=== PATIENT | female | born 1960 | race Caucasian/White ===

== ENCOUNTER 2025-03-16 03:52 | Outpatient (RCR) | payer MEDICAID, SELFPAY ==
[2025-03-14] MEDS: Normal Saline Flush 10 ML SYR IVP (08:20)
[2025-03-14 08:40] LABS: Abs Immature Grans 0.12 10^3/uL (0.0-0.06); HCT 29.0 % (36.0-46.0); HGB 8.9 g/dL (11.2-15.7); MCH 27.7 pg (27.0-33.0); MCHC 30.7 % (32.0-36.0); MCV 90 fL (80-95); RBC 3.21 10^6/uL (3.93-5.22); RDW 21.6 % (11.7-14.6); RDW-SD 67.3 fL
[2025-03-14 09:55] LABS: Immature Grans % 0.0 %
[2025-03-14 09:56] LABS: Anisocytosis 3+; Hypochromasia 1+; Macrocytosis 1+; Microcytosis 2+; Schistocytes 1+; Tear Drop Cells 2+
[2025-03-14 09:59] LABS: Platelet Count 69 10^3/uL (130-400)
[2025-03-14 10:08] LABS: WBC 1.67 10^3/uL (4.4-10.8)
[2025-03-16 08:23] LABS: Abs Immature Grans 0.08 10^3/uL (0.0-0.06); HCT 30.3 % (36.0-46.0); HGB 9.3 g/dL (11.2-15.7); MCH 27.9 pg (27.0-33.0); MCHC 30.7 % (32.0-36.0); MCV 91 fL (80-95); RBC 3.33 10^6/uL (3.93-5.22); RDW 22.3 % (11.7-14.6); RDW-SD 68.5 fL
[2025-03-16 08:31] LABS: Platelet Count 116 10^3/uL (130-400)
[2025-03-16] MEDS: Normal Saline Flush 10 ML SYR IVP (08:54)
[2025-03-16 09:06] LABS: Anisocytosis 2+; Hypochromasia 1+; Microcytosis 2+; Schistocytes 1+; Tear Drop Cells 2+
[2025-03-16 09:21] LABS: WBC 1.32 10^3/uL (4.4-10.8)
[2025-03-16 09:25] LABS: Immature Grans % 0.0 %
== END 2025-03-19 23:59 | disposition home or self-care (01) ==
LOC: INF 03:52
PROVIDERS: PCP Family Medicine; Visit Provider Internal Medicine
DX: C92.00 Acute myeloblastic leukemia, not having achieved remission (principal)
CPT/HCPCS: 36415; 86850; 86900; 86901; 85025

== ENCOUNTER 2025-04-18 14:00 | Outpatient (RCR) | payer MEDICAID, SELFPAY ==
[2025-03-21 08:49] LABS: Abs Immature Grans 0.00 10^3/uL (0.0-0.06); HCT 27.7 % (36.0-46.0); HGB 8.5 g/dL (11.2-15.7); Immature Grans % 0.0 %; MCH 28.0 pg (27.0-33.0); MCHC 30.7 % (32.0-36.0); MCV 91 fL (80-95); MPV 10.5 fL (8.0-11.0); Platelet Count 386 10^3/uL (130-400); RBC 3.04 10^6/uL (3.93-5.22); RDW 23.6 % (11.7-14.6); RDW-SD 73.5 fL
[2025-03-21 09:58] LABS: Anisocytosis 2+; Hypochromasia 1+; Microcytosis 1+; Tear Drop Cells 2+
[2025-03-21 10:06] LABS: WBC 1.02 10^3/uL (4.4-10.8)
[2025-03-27 08:25] LABS: Abs Immature Grans 0.00 10^3/uL (0.0-0.06); HCT 29.0 % (36.0-46.0); HGB 8.9 g/dL (11.2-15.7); Immature Grans % 0.0 %; MCH 28.2 pg (27.0-33.0); MCHC 30.7 % (32.0-36.0); MCV 92 fL (80-95); MPV 10.3 fL (8.0-11.0); Platelet Count 709 10^3/uL (130-400); RBC 3.16 10^6/uL (3.93-5.22); RDW 25.5 % (11.7-14.6); RDW-SD 82.5 fL
[2025-03-27 09:17] LABS: Anisocytosis 3+; Hypochromasia 2+; Microcytosis 2+; Schistocytes 1+
[2025-03-27 09:26] LABS: WBC 0.87 10^3/uL (4.4-10.8)
[2025-03-30 08:18] LABS: Abs Immature Grans 0.01 10^3/uL (0.0-0.06); HCT 29.8 % (36.0-46.0); HGB 9.2 g/dL (11.2-15.7); MCH 28.4 pg (27.0-33.0); MCHC 30.9 % (32.0-36.0); MCV 92 fL (80-95); MPV 9.8 fL (8.0-11.0); RBC 3.24 10^6/uL (3.93-5.22); RDW 26.5 % (11.7-14.6); RDW-SD 89.0 fL
[2025-03-30 09:13] LABS: Immature Grans % 0.0 %
[2025-03-30 09:14] LABS: Anisocytosis 3+; Hypochromasia 1+
[2025-03-30 09:15] LABS: Microcytosis 2+; Schistocytes 1+
[2025-03-30 09:16] LABS: Poikilocytes 2+; Tear Drop Cells 2+
[2025-03-30 09:17] LABS: Platelet Count 674 10^3/uL (130-400)
[2025-03-30 09:37] LABS: WBC 0.98 10^3/uL (4.4-10.8)
[2025-04-03 08:37] LABS: Abs Immature Grans 0.00 10^3/uL (0.0-0.06); HCT 28.4 % (36.0-46.0); HGB 8.8 g/dL (11.2-15.7); Immature Grans % 0.0 %; MCH 28.8 pg (27.0-33.0); MCHC 31.0 % (32.0-36.0); MCV 93 fL (80-95); MPV 9.7 fL (8.0-11.0); Platelet Count 646 10^3/uL (130-400); RBC 3.06 10^6/uL (3.93-5.22); RDW 27.7 % (11.7-14.6); RDW-SD 92.8 fL
[2025-04-03 10:31] LABS: Anisocytosis 3+; Hypochromasia 2+; Macrocytosis 1+; Microcytosis 2+; Ovalocytes 2+
[2025-04-03 10:32] LABS: Poikilocytes 1+; Polychromasia Present; Schistocytes 1+; Tear Drop Cells 2+
[2025-04-03 10:34] LABS: WBC 1.22 10^3/uL (4.4-10.8)
[2025-04-06 08:32] LABS: Abs Immature Grans 0.01 10^3/uL (0.0-0.06); HCT 28.4 % (36.0-46.0); HGB 8.9 g/dL (11.2-15.7); MCH 29.2 pg (27.0-33.0); MCHC 31.3 % (32.0-36.0); MCV 93 fL (80-95); MPV 10.2 fL (8.0-11.0); Platelet Count 579 10^3/uL (130-400); RBC 3.05 10^6/uL (3.93-5.22); RDW 28.0 % (11.7-14.6); RDW-SD 94.0 fL
[2025-04-06 09:32] LABS: Immature Grans % 0.0 %
[2025-04-06 09:37] LABS: WBC 1.41 10^3/uL (4.4-10.8)
[2025-04-06 09:38] LABS: Anisocytosis 2+; Microcytosis 1+; Ovalocytes 2+; Polychromasia Present; Schistocytes 1+; Tear Drop Cells 2+
[2025-04-11 08:26] LABS: Abs Immature Grans 0.03 10^3/uL (0.0-0.06); HCT 28.9 % (36.0-46.0); HGB 9.1 g/dL (11.2-15.7); Immature Grans % 1.1 %; MCH 29.2 pg (27.0-33.0); MCHC 31.5 % (32.0-36.0); MCV 93 fL (80-95); MPV 9.9 fL (8.0-11.0); Platelet Count 527 10^3/uL (130-400); RBC 3.12 10^6/uL (3.93-5.22); RDW 28.6 % (11.7-14.6); RDW-SD 95.7 fL; WBC 2.64 10^3/uL (4.4-10.8)
[2025-04-11 08:55] LABS: Anisocytosis 3+; Hypochromasia 1+; Microcytosis 1+
[2025-04-11 08:56] LABS: Polychromasia Present; Schistocytes 1+
[2025-04-13 08:22] LABS: HCT 29.7 % (36.0-46.0); HGB 9.2 g/dL (11.2-15.7); MCH 28.8 pg (27.0-33.0); MCHC 31.0 % (32.0-36.0); MCV 93 fL (80-95); MPV 10.5 fL (8.0-11.0); Platelet Count 553 10^3/uL (130-400); RBC 3.19 10^6/uL (3.93-5.22); RDW 29.1 % (11.7-14.6); RDW-SD 98.6 fL; WBC 2.73 10^3/uL (4.4-10.8)
[2025-04-13 08:56] LABS: Abs Immature Grans 0.00 10^3/uL (0.0-0.06); Anisocytosis 2+; Immature Grans % 0.0 %
[2025-04-17 12:34] LABS: HCT 30.9 % (36.0-46.0); HGB 9.6 g/dL (11.2-15.7); MCH 29.4 pg (27.0-33.0); MCHC 31.1 % (32.0-36.0); MCV 95 fL (80-95); MPV 10.2 fL (8.0-11.0); Platelet Count 640 10^3/uL (130-400); RBC 3.27 10^6/uL (3.93-5.22); RDW 29.6 % (11.7-14.6); RDW-SD 102.7 fL; WBC 2.98 10^3/uL (4.4-10.8)
[2025-04-17 13:04] LABS: Abs Immature Grans 0.00 10^3/uL (0.0-0.06); Anisocytosis 2+; Immature Grans % 0.0 %
[2025-04-17 14:33] LABS: ALT 20 U/L (14-59); AST 15 U/L (15-37); Albumin 3.6 g/dL (3.4-5.0); Alkaline Phosphatase 117 U/L (46-116); Anion Gap 10.7 mmol/L (3-11); BUN 13 mg/dL (7-18); Bilirubin, Total 0.4 mg/dL (0.2-1.0); CO2 25.3 mmol/L (21.0-32.0); Calcium 9.0 mg/dL (8.5-10.1); Chloride 103 mmol/L (98-107); Glucose 92 mg/dL (74-106); Potassium 3.9 mmol/L (3.5-5.1); Sodium 139 mmol/L (136-145); Total Protein 7.1 g/dL (6.4-8.2)
[2025-04-18 14:14] LABS: Abs Immature Grans 0.05 10^3/uL (0.0-0.06); HCT 29.5 % (36.0-46.0); HGB 9.1 g/dL (11.2-15.7); MCH 28.9 pg (27.0-33.0); MCHC 30.8 % (32.0-36.0); MCV 94 fL (80-95); MPV 12.1 fL (8.0-11.0); Platelet Count 737 10^3/uL (130-400); RBC 3.15 10^6/uL (3.93-5.22); RDW 29.6 % (11.7-14.6); RDW-SD 103.9 fL; WBC 2.37 10^3/uL (4.4-10.8)
[2025-04-18 14:52] LABS: ALT 20 U/L (14-59); AST 14 U/L (15-37); Albumin 3.6 g/dL (3.4-5.0); Alkaline Phosphatase 133 U/L (46-116); Anion Gap 8.9 mmol/L (3-11); BUN 16 mg/dL (7-18); Bilirubin, Total 0.3 mg/dL (0.2-1.0); CO2 28.1 mmol/L (21.0-32.0); Calcium 8.9 mg/dL (8.5-10.1); Chloride 106 mmol/L (98-107); Glucose 117 mg/dL (74-106); Potassium 4.2 mmol/L (3.5-5.1); Sodium 143 mmol/L (136-145); Total Protein 7.1 g/dL (6.4-8.2)
[2025-04-18 15:02] LABS: Immature Grans % 0.0 %
[2025-04-18 15:05] LABS: Anisocytosis 2+; Hypochromasia 1+; Macrocytosis 1+; Microcytosis 2+
[2025-04-18 15:06] LABS: Polychromasia Present; Schistocytes 2+
== END 2025-04-18 23:59 | disposition home or self-care (01) ==
LOC: INF 14:00
PROVIDERS: Nurse Practitioner; PCP Family Medicine; Visit Provider Internal Medicine
DX: C92.00 Acute myeloblastic leukemia, not having achieved remission (principal)
CPT/HCPCS: 36415; 80053; 86850; 86900; 86901; 85025

== ENCOUNTER 2025-05-18 00:01 | Outpatient (RCR) | payer MEDICAID, SELFPAY ==
[2025-04-20 08:09] LABS: Abs Immature Grans 0.06 10^3/uL (0.0-0.06); HCT 32.0 % (36.0-46.0); HGB 9.8 g/dL (11.2-15.7); Immature Grans % 1.9 %; MCH 29.0 pg (27.0-33.0); MCHC 30.6 % (32.0-36.0); MCV 95 fL (80-95); MPV 11.3 fL (8.0-11.0); RBC 3.38 10^6/uL (3.93-5.22); RDW 28.8 % (11.7-14.6); RDW-SD 99.3 fL; WBC 3.20 10^3/uL (4.4-10.8)
[2025-04-20 08:22] LABS: Anisocytosis 2+; Platelet Count 672 10^3/uL (130-400); Poikilocytes 2+
[2025-04-24 08:06] LABS: Abs Immature Grans 0.08 10^3/uL (0.0-0.06); HCT 32.5 % (36.0-46.0); HGB 9.9 g/dL (11.2-15.7); Immature Grans % 2.0 %; MCH 29.0 pg (27.0-33.0); MCHC 30.5 % (32.0-36.0); MCV 95 fL (80-95); MPV 9.9 fL (8.0-11.0); Platelet Count 582 10^3/uL (130-400); RBC 3.41 10^6/uL (3.93-5.22); RDW 27.8 % (11.7-14.6); RDW-SD 98.5 fL; WBC 4.09 10^3/uL (4.4-10.8)
[2025-04-24 08:28] LABS: Anisocytosis 2+; Hypochromasia 1+; Microcytosis 1+; Polychromasia Present; Schistocytes 1+
[2025-04-24 08:31] LABS: ALT 18 U/L (14-59); AST 14 U/L (15-37); Albumin 3.8 g/dL (3.4-5.0); Alkaline Phosphatase 114 U/L (46-116); Anion Gap 9.1 mmol/L (3-11); BUN 15 mg/dL (7-18); Bilirubin, Total 0.5 mg/dL (0.2-1.0); CO2 27.9 mmol/L (21.0-32.0); Calcium 9.4 mg/dL (8.5-10.1); Chloride 104 mmol/L (98-107); Glucose 105 mg/dL (74-106); Magnesium 2.1 mg/dL (1.8-2.4); Potassium 4.4 mmol/L (3.5-5.1); Sodium 141 mmol/L (136-145); Total Protein 7.3 g/dL (6.4-8.2)
[2025-04-27 08:45] LABS: Abs Immature Grans 0.05 10^3/uL (0.0-0.06); HCT 34.2 % (36.0-46.0); HGB 10.7 g/dL (11.2-15.7); MCH 30.1 pg (27.0-33.0); MCHC 31.3 % (32.0-36.0); MCV 96 fL (80-95); MPV 10.8 fL (8.0-11.0); Platelet Count 508 10^3/uL (130-400); RBC 3.55 10^6/uL (3.93-5.22); RDW 27.2 % (11.7-14.6); RDW-SD 95.7 fL; WBC 5.07 10^3/uL (4.4-10.8)
[2025-04-27 09:06] LABS: ALT 20 U/L (14-59); AST 16 U/L (15-37); Albumin 4.1 g/dL (3.4-5.0); Alkaline Phosphatase 115 U/L (46-116); Anion Gap 9.3 mmol/L (3-11); BUN 21 mg/dL (7-18); Bilirubin, Total 0.8 mg/dL (0.2-1.0); CO2 27.7 mmol/L (21.0-32.0); Calcium 9.5 mg/dL (8.5-10.1); Chloride 103 mmol/L (98-107); Glucose 95 mg/dL (74-106); Magnesium 2.3 mg/dL (1.8-2.4); Potassium 4.3 mmol/L (3.5-5.1); Sodium 140 mmol/L (136-145); Total Protein 7.7 g/dL (6.4-8.2)
[2025-04-27 09:39] LABS: Immature Grans % 0.0 %
[2025-04-27 09:40] LABS: Anisocytosis 2+; Hypochromasia 1+; Macrocytosis 1+; Microcytosis 2+; Ovalocytes 2+; Polychromasia Present; Schistocytes 1+; Tear Drop Cells 2+
[2025-05-02 08:51] LABS: Abs Immature Grans 0.02 10^3/uL (0.0-0.06); HCT 30.3 % (36.0-46.0); HGB 9.8 g/dL (11.2-15.7); Immature Grans % 0.6 %; MCH 31.3 pg (27.0-33.0); MCHC 32.3 % (32.0-36.0); MCV 97 fL (80-95); Platelet Count 237 10^3/uL (130-400); RBC 3.13 10^6/uL (3.93-5.22); RDW 26.1 % (11.7-14.6); RDW-SD 89.9 fL; WBC 3.25 10^3/uL (4.4-10.8)
[2025-05-02 09:08] LABS: ALT 21 U/L (14-59); AST 14 U/L (15-37); Albumin 3.7 g/dL (3.4-5.0); Alkaline Phosphatase 116 U/L (46-116); Anion Gap 9.2 mmol/L (3-11); BUN 16 mg/dL (7-18); Bilirubin, Total 0.6 mg/dL (0.2-1.0); CO2 28.8 mmol/L (21.0-32.0); Calcium 9.0 mg/dL (8.5-10.1); Chloride 105 mmol/L (98-107); Glucose 92 mg/dL (74-106); Magnesium 2.1 mg/dL (1.8-2.4); Potassium 4.0 mmol/L (3.5-5.1); Sodium 143 mmol/L (136-145); Total Protein 6.9 g/dL (6.4-8.2)
[2025-05-02 09:34] LABS: Anisocytosis 3+; Hypochromasia 1+; Microcytosis 2+; Polychromasia Present; Schistocytes 1+
[2025-05-02 09:35] LABS: Tear Drop Cells 2+
[2025-05-04 08:11] LABS: Abs Immature Grans 0.02 10^3/uL (0.0-0.06); HCT 31.0 % (36.0-46.0); HGB 9.8 g/dL (11.2-15.7); MCH 30.6 pg (27.0-33.0); MCHC 31.6 % (32.0-36.0); MCV 97 fL (80-95); Platelet Count 222 10^3/uL (130-400); RBC 3.20 10^6/uL (3.93-5.22); RDW 25.6 % (11.7-14.6); RDW-SD 87.0 fL; WBC 3.59 10^3/uL (4.4-10.8)
[2025-05-04 08:24] LABS: ALT 21 U/L (14-59); AST 21 U/L (15-37); Albumin 3.8 g/dL (3.4-5.0); Alkaline Phosphatase 114 U/L (46-116); Anion Gap 9.7 mmol/L (3-11); BUN 15 mg/dL (7-18); Bilirubin, Total 0.6 mg/dL (0.2-1.0); CO2 28.3 mmol/L (21.0-32.0); Calcium 9.2 mg/dL (8.5-10.1); Chloride 104 mmol/L (98-107); Glucose 83 mg/dL (74-106); Magnesium 2.1 mg/dL (1.8-2.4); Potassium 4.4 mmol/L (3.5-5.1); Sodium 142 mmol/L (136-145); Total Protein 7.1 g/dL (6.4-8.2)
[2025-05-04 09:00] LABS: Anisocytosis 3+; Hypochromasia 1+; Immature Grans % 0.0 %; Macrocytosis 1+; Microcytosis 2+; Ovalocytes 2+; Polychromasia Present; Schistocytes 1+
[2025-05-09 08:39] LABS: Abs Immature Grans 0.01 10^3/uL (0.0-0.06); HCT 32.5 % (36.0-46.0); HGB 10.3 g/dL (11.2-15.7); Immature Grans % 0.3 %; MCH 31.9 pg (27.0-33.0); MCHC 31.7 % (32.0-36.0); MCV 101 fL (80-95); Platelet Count 281 10^3/uL (130-400); RBC 3.23 10^6/uL (3.93-5.22); RDW 25.8 % (11.7-14.6); RDW-SD 89.5 fL; WBC 2.91 10^3/uL (4.4-10.8)
[2025-05-09 08:56] LABS: ALT 23 U/L (14-59); AST 16 U/L (15-37); Albumin 3.9 g/dL (3.4-5.0); Alkaline Phosphatase 110 U/L (46-116); Anion Gap 6.3 mmol/L (3-11); BUN 12 mg/dL (7-18); Bilirubin, Total 0.9 mg/dL (0.2-1.0); CO2 28.7 mmol/L (21.0-32.0); Calcium 9.0 mg/dL (8.5-10.1); Chloride 105 mmol/L (98-107); Glucose 93 mg/dL (74-106); Magnesium 2.2 mg/dL (1.8-2.4); Potassium 3.9 mmol/L (3.5-5.1); Sodium 140 mmol/L (136-145); Total Protein 7.2 g/dL (6.4-8.2)
[2025-05-09 09:15] LABS: Anisocytosis 2+; Poikilocytes 2+
[2025-05-11 08:30] LABS: Abs Immature Grans 0.01 10^3/uL (0.0-0.06); HCT 34.7 % (36.0-46.0); HGB 10.8 g/dL (11.2-15.7); Immature Grans % 0.4 %; MCH 32.0 pg (27.0-33.0); MCHC 31.1 % (32.0-36.0); MCV 103 fL (80-95); MPV 10.7 fL (8.0-11.0); Platelet Count 343 10^3/uL (130-400); RBC 3.37 10^6/uL (3.93-5.22); RDW 25.2 % (11.7-14.6); RDW-SD 91.2 fL; WBC 2.66 10^3/uL (4.4-10.8)
[2025-05-11 08:46] LABS: ALT 24 U/L (14-59); AST 14 U/L (15-37); Albumin 3.9 g/dL (3.4-5.0); Alkaline Phosphatase 104 U/L (46-116); Anion Gap 8.5 mmol/L (3-11); BUN 15 mg/dL (7-18); Bilirubin, Total 0.9 mg/dL (0.2-1.0); CO2 28.5 mmol/L (21.0-32.0); Calcium 9.3 mg/dL (8.5-10.1); Chloride 104 mmol/L (98-107); Glucose 94 mg/dL (74-106); Magnesium 2.2 mg/dL (1.8-2.4); Potassium 4.5 mmol/L (3.5-5.1); Sodium 141 mmol/L (136-145); Total Protein 7.3 g/dL (6.4-8.2)
[2025-05-11 09:10] LABS: Anisocytosis 2+
[2025-05-16 08:38] LABS: Abs Immature Grans 0.00 10^3/uL (0.0-0.06); HCT 39.7 % (36.0-46.0); HGB 12.5 g/dL (11.2-15.7); Immature Grans % 0.0 %; MCH 32.8 pg (27.0-33.0); MCHC 31.5 % (32.0-36.0); MCV 104 fL (80-95); MPV 11.2 fL (8.0-11.0); RBC 3.81 10^6/uL (3.93-5.22); RDW 22.5 % (11.7-14.6); RDW-SD 80.3 fL; WBC 2.63 10^3/uL (4.4-10.8)
[2025-05-16 08:51] LABS: ALT 23 U/L (14-59); AST 12 U/L (15-37); Albumin 4.0 g/dL (3.4-5.0); Alkaline Phosphatase 113 U/L (46-116); Anion Gap 8.9 mmol/L (3-11); BUN 18 mg/dL (7-18); Bilirubin, Total 0.6 mg/dL (0.2-1.0); CO2 28.1 mmol/L (21.0-32.0); Calcium 9.3 mg/dL (8.5-10.1); Chloride 103 mmol/L (98-107); Glucose 93 mg/dL (74-106); Magnesium 2.1 mg/dL (1.8-2.4); Potassium 4.1 mmol/L (3.5-5.1); Sodium 140 mmol/L (136-145); Total Protein 7.5 g/dL (6.4-8.2)
[2025-05-16 09:18] LABS: Anisocytosis 3+; Hypochromasia 1+; Macrocytosis 2+; Microcytosis 1+
[2025-05-16 09:19] LABS: Polychromasia Present; Schistocytes 1+
[2025-05-16 09:22] LABS: Platelet Count 807 10^3/uL (130-400)
[2025-05-18 08:10] LABS: Abs Immature Grans 0.01 10^3/uL (0.0-0.06); HCT 38.9 % (36.0-46.0); HGB 12.2 g/dL (11.2-15.7); Immature Grans % 0.4 %; MCH 32.6 pg (27.0-33.0); MCHC 31.4 % (32.0-36.0); MCV 104 fL (80-95); MPV 10.7 fL (8.0-11.0); RBC 3.74 10^6/uL (3.93-5.22); RDW 21.6 % (11.7-14.6); RDW-SD 75.7 fL; WBC 2.80 10^3/uL (4.4-10.8)
[2025-05-18 08:20] LABS: ALT 23 U/L (14-59); AST 15 U/L (15-37); Albumin 3.9 g/dL (3.4-5.0); Alkaline Phosphatase 113 U/L (46-116); Anion Gap 5.6 mmol/L (3-11); BUN 12 mg/dL (7-18); Bilirubin, Total 0.5 mg/dL (0.2-1.0); CO2 29.4 mmol/L (21.0-32.0); Calcium 9.3 mg/dL (8.5-10.1); Chloride 106 mmol/L (98-107); Glucose 102 mg/dL (74-106); Magnesium 2.2 mg/dL (1.8-2.4); Potassium 4.8 mmol/L (3.5-5.1); Sodium 141 mmol/L (136-145); Total Protein 7.5 g/dL (6.4-8.2)
[2025-05-18 08:45] LABS: Platelet Count 894 10^3/uL (130-400)
[2025-05-18 08:46] LABS: Anisocytosis 2+
== END 2025-05-19 23:59 | disposition home or self-care (01) ==
LOC: INF 00:01
PROVIDERS: PCP Family Medicine; Visit Provider Internal Medicine
DX: C92.00 Acute myeloblastic leukemia, not having achieved remission (principal)
CPT/HCPCS: 36415; 80053; 86850; 86900; 86901; 83735; 85025

== ENCOUNTER 2025-06-16 02:01 | Outpatient (RCR) | payer MEDICAID, SELFPAY ==
[2025-05-22 08:34] LABS: Abs Immature Grans 0.01 10^3/uL (0.0-0.06); HCT 38.0 % (36.0-46.0); HGB 12.0 g/dL (11.2-15.7); Immature Grans % 0.3 %; MCH 32.7 pg (27.0-33.0); MCHC 31.6 % (32.0-36.0); MCV 104 fL (80-95); MPV 11.4 fL (8.0-11.0); RBC 3.67 10^6/uL (3.93-5.22); RDW 19.8 % (11.7-14.6); RDW-SD 67.1 fL; WBC 3.00 10^3/uL (4.4-10.8)
[2025-05-22] MEDS: Normal Saline Flush 10 ML SYR IVP (09:07)
[2025-05-22 09:22] LABS: ALT 25 U/L (14-59); AST 20 U/L (15-37); Albumin 3.7 g/dL (3.4-5.0); Alkaline Phosphatase 121 U/L (46-116); Anion Gap 11.0 mmol/L (3-11); BUN 11 mg/dL (7-18); Bilirubin, Total 0.3 mg/dL (0.2-1.0); CO2 25.0 mmol/L (21.0-32.0); Calcium 8.9 mg/dL (8.5-10.1); Chloride 106 mmol/L (98-107); Estimated GFR 99.55 (mL/min/1.73m2); Glucose 93 mg/dL (74-106); Magnesium 2.0 mg/dL (1.8-2.4); Potassium 4.0 mmol/L (3.5-5.1); Sodium 142 mmol/L (136-145); Total Protein 7.3 g/dL (6.4-8.2)
[2025-05-22 10:07] LABS: Platelet Count 1045 10^3/uL (130-400)
[2025-05-22 10:08] LABS: Anisocytosis 3+; Hypochromasia 1+; Macrocytosis 2+; Microcytosis 1+; Polychromasia Present; Schistocytes 1+; Tear Drop Cells 2+
[2025-05-25 08:23] LABS: Abs Immature Grans 0.01 10^3/uL (0.0-0.06); HCT 39.5 % (36.0-46.0); HGB 12.8 g/dL (11.2-15.7); Immature Grans % 0.3 %; MCH 32.7 pg (27.0-33.0); MCHC 32.4 % (32.0-36.0); MCV 101 fL (80-95); MPV 11.2 fL (8.0-11.0); RBC 3.91 10^6/uL (3.93-5.22); RDW 19.8 % (11.7-14.6); RDW-SD 63.7 fL; WBC 2.94 10^3/uL (4.4-10.8)
[2025-05-25 08:43] LABS: ALT 30 U/L (14-59); AST 23 U/L (15-37); Albumin 3.8 g/dL (3.4-5.0); Alkaline Phosphatase 131 U/L (46-116); Anion Gap 9.3 mmol/L (3-11); BUN 11 mg/dL (7-18); Bilirubin, Total 0.5 mg/dL (0.2-1.0); CO2 26.7 mmol/L (21.0-32.0); Calcium 9.1 mg/dL (8.5-10.1); Chloride 104 mmol/L (98-107); Estimated GFR 95.92 (mL/min/1.73m2); Glucose 105 mg/dL (74-106); Magnesium 2.1 mg/dL (1.8-2.4); Potassium 4.4 mmol/L (3.5-5.1); Sodium 140 mmol/L (136-145); Total Protein 7.4 g/dL (6.4-8.2)
[2025-05-25 09:13] LABS: Anisocytosis 2+; Hypochromasia 1+; Macrocytosis 1+; Microcytosis 1+; Ovalocytes 2+; Platelet Count 895 10^3/uL (130-400); Polychromasia Present
[2025-05-25 09:14] LABS: Schistocytes 1+; Tear Drop Cells 2+
[2025-05-25] MEDS: Normal Saline Flush 10 ML SYR IVP (14:38)
[2025-05-30] MEDS: Normal Saline Flush 10 ML SYR IVP (08:05)
[2025-05-30 08:47] LABS: Abs Immature Grans 0.00 10^3/uL (0.0-0.06); HCT 40.0 % (36.0-46.0); HGB 13.2 g/dL (11.2-15.7); Immature Grans % 0.0 %; MCH 33.6 pg (27.0-33.0); MCHC 33.0 % (32.0-36.0); MCV 102 fL (80-95); MPV 10.5 fL (8.0-11.0); Platelet Count 384 10^3/uL (130-400); RBC 3.93 10^6/uL (3.93-5.22); RDW 17.9 % (11.7-14.6); RDW-SD 58.7 fL
[2025-05-30 09:01] LABS: ALT 30 U/L (14-59); AST 17 U/L (15-37); Albumin 3.8 g/dL (3.4-5.0); Alkaline Phosphatase 156 U/L (46-116); Anion Gap 9.8 mmol/L (3-11); BUN 17 mg/dL (7-18); Bilirubin, Total 0.6 mg/dL (0.2-1.0); CO2 26.2 mmol/L (21.0-32.0); Calcium 8.6 mg/dL (8.5-10.1); Chloride 105 mmol/L (98-107); Estimated GFR 99.55 (mL/min/1.73m2); Glucose 93 mg/dL (74-106); Magnesium 2.1 mg/dL (1.8-2.4); Potassium 4.1 mmol/L (3.5-5.1); Sodium 141 mmol/L (136-145); Total Protein 7.4 g/dL (6.4-8.2)
[2025-05-30 09:54] LABS: Anisocytosis 3+; Macrocytosis 1+; Microcytosis 2+; Ovalocytes 2+
[2025-05-30 09:55] LABS: Poikilocytes 1+; Schistocytes 1+
[2025-05-30 09:58] LABS: WBC 1.57 10^3/uL (4.4-10.8)
[2025-06-01] MEDS: Normal Saline Flush 10 ML SYR IVP (08:14)
[2025-06-01 08:31] LABS: Abs Immature Grans 0.00 10^3/uL (0.0-0.06); Immature Grans % 0.0 %
[2025-06-01 08:42] LABS: HCT 39.7 % (36.0-46.0); HGB 12.9 g/dL (11.2-15.7); MCH 33.1 pg (27.0-33.0); MCHC 32.5 % (32.0-36.0); MCV 102 fL (80-95); Platelet Count 245 10^3/uL (130-400); RBC 3.90 10^6/uL (3.93-5.22); RDW 18.1 % (11.7-14.6); RDW-SD 58.7 fL
[2025-06-01 08:51] LABS: Magnesium 2.0 mg/dL (1.6-2.6)
[2025-06-01 08:52] LABS: ALT 25 U/L (10-49); AST 21 U/L (<34); Albumin 4.5 g/dL (3.4-5.0); Alkaline Phosphatase 164 U/L (46-116); Anion Gap 11.2 mmol/L (3-11); BUN 21 mg/dL (9-23); Bilirubin, Total 0.50 mg/dL (0.2-1.2); CO2 23.8 mmol/L (20.0-31.0); Calcium 9.2 mg/dL (8.3-10.6); Chloride 106 mmol/L (98-107); Glucose 140 mg/dL (74-106); Potassium 4.4 mmol/L (3.5-5.1); Sodium 141 mmol/L (136-145); Total Protein 7.3 g/dL (5.7-8.2)
[2025-06-01 09:00] LABS: RBC Morphology Normal
[2025-06-01 09:22] LABS: WBC 2.08 10^3/uL (4.4-10.8)
[2025-06-06] MEDS: Normal Saline Flush 10 ML SYR IVP (08:34)
[2025-06-06 08:49] LABS: Abs Immature Grans 0.01 10^3/uL (0.0-0.06); HCT 36.8 % (36.0-46.0); HGB 12.0 g/dL (11.2-15.7); Immature Grans % 0.5 %; MCH 32.3 pg (27.0-33.0); MCHC 32.6 % (32.0-36.0); MCV 99 fL (80-95); RBC 3.72 10^6/uL (3.93-5.22); RDW 17.2 % (11.7-14.6); RDW-SD 52.9 fL
[2025-06-06 09:06] LABS: Platelet Count 178 10^3/uL (130-400)
[2025-06-06 09:08] LABS: RBC Morphology Normal
[2025-06-06 09:19] LABS: WBC 1.97 10^3/uL (4.4-10.8)
[2025-06-06 09:25] LABS: Magnesium 2.0 mg/dL (1.6-2.6)
[2025-06-06 09:28] LABS: ALT 20 U/L (10-49); AST 18 U/L (<34); Albumin 4.2 g/dL (3.4-5.0); Alkaline Phosphatase 148 U/L (46-116); Anion Gap 9.1 mmol/L (3-11); BUN 15 mg/dL (9-23); Bilirubin, Total 0.50 mg/dL (0.2-1.2); CO2 25.9 mmol/L (20.0-31.0); Calcium 9.3 mg/dL (8.3-10.6); Chloride 108 mmol/L (98-107); Glucose 93 mg/dL (74-106); Potassium 3.9 mmol/L (3.5-5.1); Sodium 143 mmol/L (136-145); Total Protein 6.8 g/dL (5.7-8.2)
[2025-06-08 08:17] LABS: Abs Immature Grans 0.01 10^3/uL (0.0-0.06); HCT 36.8 % (36.0-46.0); HGB 12.3 g/dL (11.2-15.7); Immature Grans % 0.5 %; MCH 33.4 pg (27.0-33.0); MCHC 33.4 % (32.0-36.0); MCV 100 fL (80-95); Platelet Count 215 10^3/uL (130-400); RBC 3.68 10^6/uL (3.93-5.22); RDW 16.4 % (11.7-14.6); RDW-SD 53.7 fL
[2025-06-08 08:32] LABS: RBC Morphology Normal
[2025-06-08 08:39] LABS: Magnesium 2.1 mg/dL (1.6-2.6)
[2025-06-08 08:41] LABS: ALT 20 U/L (10-49); AST 20 U/L (<34); Albumin 4.2 g/dL (3.4-5.0); Alkaline Phosphatase 138 U/L (46-116); Anion Gap 8.7 mmol/L (3-11); BUN 15 mg/dL (9-23); Bilirubin, Total 0.50 mg/dL (0.2-1.2); CO2 27.3 mmol/L (20.0-31.0); Calcium 9.3 mg/dL (8.3-10.6); Chloride 106 mmol/L (98-107); Glucose 97 mg/dL (74-106); Potassium 4.0 mmol/L (3.5-5.1); Sodium 142 mmol/L (136-145); Total Protein 6.8 g/dL (5.7-8.2); WBC 1.93 10^3/uL (4.4-10.8)
[2025-06-08] MEDS: Normal Saline Flush 10 ML SYR IVP (08:59)
[2025-06-13 08:52] LABS: Abs Immature Grans 0.00 10^3/uL (0.0-0.06); HCT 37.1 % (36.0-46.0); HGB 12.4 g/dL (11.2-15.7); Immature Grans % 0.0 %; MCH 33.2 pg (27.0-33.0); MCHC 33.4 % (32.0-36.0); MCV 100 fL (80-95); MPV 12.0 fL (8.0-11.0); Platelet Count 441 10^3/uL (130-400); RBC 3.73 10^6/uL (3.93-5.22); RDW 16.6 % (11.7-14.6); RDW-SD 53.2 fL
[2025-06-13 09:01] LABS: Magnesium 1.9 mg/dL (1.6-2.6)
[2025-06-13 09:03] LABS: ALT 15 U/L (10-49); AST 16 U/L (<34); Albumin 4.3 g/dL (3.4-5.0); Alkaline Phosphatase 128 U/L (46-116); Anion Gap 9.2 mmol/L (3-11); BUN 13 mg/dL (9-23); Bilirubin, Total 0.50 mg/dL (0.2-1.2); CO2 25.8 mmol/L (20.0-31.0); Calcium 9.1 mg/dL (8.3-10.6); Chloride 108 mmol/L (98-107); Glucose 99 mg/dL (74-106); Potassium 3.7 mmol/L (3.5-5.1); Sodium 143 mmol/L (136-145); Total Protein 6.8 g/dL (5.7-8.2)
[2025-06-13] MEDS: Normal Saline Flush 10 ML SYR IVP (09:16)
[2025-06-13 09:53] LABS: Anisocytosis 3+; Hypochromasia 1+
[2025-06-13 09:54] LABS: Macrocytosis 1+; Microcytosis 2+; Polychromasia Present
[2025-06-13 09:55] LABS: Schistocytes 1+
[2025-06-13 10:01] LABS: WBC 1.97 10^3/uL (4.4-10.8)
[2025-06-16] MEDS: Normal Saline Flush 10 ML SYR IVP (08:19)
[2025-06-16 08:28] LABS: Abs Immature Grans 0.01 10^3/uL (0.0-0.06); HCT 35.4 % (36.0-46.0); HGB 11.9 g/dL (11.2-15.7); MCH 33.0 pg (27.0-33.0); MCHC 33.6 % (32.0-36.0); MCV 98 fL (80-95); MPV 11.4 fL (8.0-11.0); RBC 3.61 10^6/uL (3.93-5.22); RDW 16.2 % (11.7-14.6); RDW-SD 52.2 fL
[2025-06-16 08:42] LABS: Magnesium 1.9 mg/dL (1.6-2.6)
[2025-06-16 08:43] LABS: ALT 13 U/L (10-49); AST 16 U/L (<34); Albumin 4.1 g/dL (3.2-5.0); Alkaline Phosphatase 120 U/L (46-116); Anion Gap 8.2 mmol/L (3-11); BUN 13 mg/dL (9-23); Bilirubin, Total 0.40 mg/dL (0.2-1.2); CO2 24.8 mmol/L (20.0-31.0); Calcium 9.0 mg/dL (8.3-10.6); Chloride 110 mmol/L (98-107); Glucose 91 mg/dL (74-106); Potassium 3.8 mmol/L (3.5-5.1); Sodium 143 mmol/L (136-145); Total Protein 6.8 g/dL (5.7-8.2)
[2025-06-16 09:30] LABS: Immature Grans % 0.0 %; Platelet Count 490 10^3/uL (130-400)
[2025-06-16 09:32] LABS: Anisocytosis 3+; Macrocytosis 1+; Microcytosis 2+; Ovalocytes 2+; Polychromasia Present
[2025-06-16 09:33] LABS: Schistocytes 1+
[2025-06-16 09:43] LABS: WBC 1.83 10^3/uL (4.4-10.8)
== END 2025-06-18 23:59 | disposition home or self-care (01) ==
LOC: INF 02:01
PROVIDERS: PCP Family Medicine; Visit Provider Internal Medicine
DX: C92.00 Acute myeloblastic leukemia, not having achieved remission (principal); Z45.2 Encounter for adjustment and management of vascular access device
CPT/HCPCS: 36591; 80053; 86850; 86900; 86901; 83735; 85025

== ENCOUNTER 2025-07-17 00:32 | Outpatient (RCR) | payer MEDICAID, SELFPAY ==
[2025-06-19] MEDS: Normal Saline Flush 10 ML SYR IVP (13:13)
[2025-06-19 13:43] LABS: Magnesium 1.9 mg/dL (1.6-2.6)
[2025-06-19 13:45] LABS: ALT 13 U/L (10-49); AST 17 U/L (<34); Albumin 4.3 g/dL (3.2-5.0); Alkaline Phosphatase 125 U/L (46-116); Anion Gap 10.2 mmol/L (3-11); BUN 11 mg/dL (9-23); Bilirubin, Total 0.30 mg/dL (0.2-1.2); CO2 26.8 mmol/L (20.0-31.0); Calcium 9.4 mg/dL (8.3-10.6); Chloride 107 mmol/L (98-107); Glucose 119 mg/dL (74-106); Potassium 3.5 mmol/L (3.5-5.1); Sodium 144 mmol/L (136-145); Total Protein 7.0 g/dL (5.7-8.2)
[2025-06-19 14:03] LABS: Abs Immature Grans 0.01 10^3/uL (0.0-0.06); HCT 36.7 % (36.0-46.0); HGB 12.1 g/dL (11.2-15.7); Immature Grans % 0.5 %; MCH 32.6 pg (27.0-33.0); MCHC 33.0 % (32.0-36.0); MCV 99 fL (80-95); MPV 11.7 fL (8.0-11.0); RBC 3.71 10^6/uL (3.93-5.22); RDW 16.1 % (11.7-14.6); RDW-SD 52.0 fL; WBC 2.19 10^3/uL (4.4-10.8)
[2025-06-19 14:07] LABS: Anisocytosis 2+; Hypochromasia 1+; Macrocytosis 1+; Microcytosis 1+; Platelet Count 595 10^3/uL (130-400)
[2025-06-27 08:47] LABS: Abs Immature Grans 0.00 10^3/uL (0.0-0.06); HCT 35.9 % (36.0-46.0); HGB 11.9 g/dL (11.2-15.7); Immature Grans % 0.0 %; MCH 32.5 pg (27.0-33.0); MCHC 33.1 % (32.0-36.0); MCV 98 fL (80-95); MPV 10.6 fL (8.0-11.0); RBC 3.66 10^6/uL (3.93-5.22); RDW 15.1 % (11.7-14.6); RDW-SD 51.4 fL
[2025-06-27 09:06] LABS: Magnesium 2.0 mg/dL (1.6-2.6)
[2025-06-27 09:08] LABS: ALT 19 U/L (10-49); AST 19 U/L (<34); Albumin 4.3 g/dL (3.2-5.0); Alkaline Phosphatase 112 U/L (46-116); Anion Gap 9.3 mmol/L (3-11); BUN 18 mg/dL (9-23); Bilirubin, Total 0.5 mg/dL (0.2-1.2); CO2 26.7 mmol/L (20.0-31.0); Calcium 8.9 mg/dL (8.3-10.6); Chloride 106 mmol/L (98-107); Glucose 92 mg/dL (74-106); Potassium 3.9 mmol/L (3.5-5.1); Sodium 142 mmol/L (136-145); Total Protein 6.7 g/dL (5.7-8.2)
[2025-06-27 09:57] LABS: Platelet Count 343 10^3/uL (130-400)
[2025-06-27 09:58] LABS: Poikilocytes 2+
[2025-06-27 10:13] LABS: WBC 1.36 10^3/uL (4.4-10.8)
[2025-06-27] MEDS: Normal Saline Flush 5 ML SYR IVP (12:23)
[2025-06-29 08:41] LABS: Abs Immature Grans 0.00 10^3/uL (0.0-0.06); HCT 37.2 % (36.0-46.0); HGB 12.6 g/dL (11.2-15.7); Immature Grans % 0.0 %; MCH 33.2 pg (27.0-33.0); MCHC 33.9 % (32.0-36.0); MCV 98 fL (80-95); MPV 10.3 fL (8.0-11.0); RBC 3.79 10^6/uL (3.93-5.22); RDW 15.1 % (11.7-14.6); RDW-SD 51.8 fL
[2025-06-29] MEDS: Normal Saline Flush 10 ML SYR IVP (08:44)
[2025-06-29 09:06] LABS: Magnesium 2.1 mg/dL (1.6-2.6)
[2025-06-29 09:09] LABS: ALT 18 U/L (10-49); AST 17 U/L (<34); Albumin 4.3 g/dL (3.2-5.0); Alkaline Phosphatase 118 U/L (46-116); Anion Gap 9.3 mmol/L (3-11); BUN 14 mg/dL (9-23); Bilirubin, Total 0.5 mg/dL (0.2-1.2); CO2 26.7 mmol/L (20.0-31.0); Calcium 9.2 mg/dL (8.3-10.6); Chloride 106 mmol/L (98-107); Glucose 97 mg/dL (74-106); Potassium 3.9 mmol/L (3.5-5.1); Sodium 142 mmol/L (136-145); Total Protein 7.1 g/dL (5.7-8.2)
[2025-06-29 09:46] LABS: Anisocytosis 2+; Macrocytosis 1+; Microcytosis 1+; Schistocytes 1+
[2025-06-29 09:47] LABS: Platelet Count 253 10^3/uL (130-400)
[2025-06-29 10:07] LABS: WBC 1.73 10^3/uL (4.4-10.8)
[2025-07-04 09:01] LABS: HCT 37.5 % (36.0-46.0); HGB 12.5 g/dL (11.2-15.7); MCH 32.1 pg (27.0-33.0); MCHC 33.3 % (32.0-36.0); MCV 96 fL (80-95); Platelet Count 198 10^3/uL (130-400); RBC 3.90 10^6/uL (3.93-5.22); RDW 14.7 % (11.7-14.6); RDW-SD 50.4 fL
[2025-07-04 09:19] LABS: Magnesium 2.0 mg/dL (1.6-2.6)
[2025-07-04 09:21] LABS: ALT 19 U/L (10-49); AST 17 U/L (<34); Albumin 4.4 g/dL (3.2-5.0); Alkaline Phosphatase 120 U/L (46-116); Anion Gap 7.7 mmol/L (3-11); BUN 18 mg/dL (9-23); Bilirubin, Total 0.5 mg/dL (0.2-1.2); CO2 26.3 mmol/L (20.0-31.0); Calcium 9.4 mg/dL (8.3-10.6); Chloride 107 mmol/L (98-107); Glucose 85 mg/dL (74-106); Potassium 3.8 mmol/L (3.5-5.1); Sodium 141 mmol/L (136-145); Total Protein 7.1 g/dL (5.7-8.2)
[2025-07-04 09:27] LABS: Abs Immature Grans 0.00 10^3/uL (0.0-0.06); Immature Grans % 0.0 %; RBC Morphology Normal
[2025-07-04 09:40] LABS: WBC 1.68 10^3/uL (4.4-10.8)
[2025-07-04] MEDS: Normal Saline Flush 10 ML SYR IVP (10:50)
[2025-07-06 14:06] LABS: HCT 38.2 % (36.0-46.0); HGB 13.0 g/dL (11.2-15.7); RBC 3.89 10^6/uL (3.93-5.22); WBC 1.83 10^3/uL (4.4-10.8)
[2025-07-06 14:07] LABS: MCH 33.4 pg (27.0-33.0); MCHC 34.0 % (32.0-36.0); MCV 98 fL (80-95); RDW 14.9 % (11.7-14.6); RDW-SD 51.7 fL
[2025-07-06 14:08] LABS: Immature Grans % 0.0 %
[2025-07-06 14:09] LABS: Anisocytosis 2+
[2025-07-06 14:10] LABS: Microcytosis 1+; Ovalocytes 2+; Platelet Count 218 10^3/uL (130-400)
[2025-07-06] MEDS: Normal Saline Flush 10 ML SYR IVP (14:26)
[2025-07-06 16:24] LABS: CO2 25.0 mmol/L (20.0-31.0); Chloride 106 mmol/L (98-107); Potassium 4.1 mmol/L (3.5-5.1); Sodium 141 mmol/L (136-145)
[2025-07-06 16:25] LABS: BUN 18 mg/dL (9-23); Calcium 9.4 mg/dL (8.3-10.6); Glucose 91 mg/dL (74-106); Total Protein 7.4 g/dL (5.7-8.2)
[2025-07-06 16:26] LABS: ALT 17 U/L (10-49); AST 19 U/L (<34); Albumin 4.6 g/dL (3.2-5.0); Alkaline Phosphatase 119 U/L (46-116); Bilirubin, Total 0.6 mg/dL (0.2-1.2); Magnesium 2.0 mg/dL (1.6-2.6)
[2025-07-06 16:30] LABS: Anion Gap 10 mmol/L (3-11)
[2025-07-10] MEDS: Normal Saline Flush 10 ML SYR IVP (08:34)
[2025-07-10 08:55] LABS: Abs Immature Grans 0.00 10^3/uL (0.0-0.06); HCT 36.0 % (36.0-46.0); HGB 12.2 g/dL (11.2-15.7); Immature Grans % 0.0 %; MCH 33.2 pg (27.0-33.0); MCHC 33.9 % (32.0-36.0); MCV 98 fL (80-95); MPV 11.0 fL (8.0-11.0); Platelet Count 326 10^3/uL (130-400); RBC 3.68 10^6/uL (3.93-5.22); RDW 14.9 % (11.7-14.6); RDW-SD 51.7 fL
[2025-07-10 09:17] LABS: Magnesium 2.1 mg/dL (1.6-2.6)
[2025-07-10 09:20] LABS: ALT 17 U/L (10-49); AST 17 U/L (<34); Albumin 4.3 g/dL (3.2-5.0); Alkaline Phosphatase 125 U/L (46-116); Anion Gap 8.9 mmol/L (3-11); BUN 15 mg/dL (9-23); Bilirubin, Total 0.4 mg/dL (0.2-1.2); CO2 27.1 mmol/L (20.0-31.0); Calcium 9.5 mg/dL (8.3-10.6); Chloride 107 mmol/L (98-107); Glucose 98 mg/dL (74-106); Potassium 4.0 mmol/L (3.5-5.1); Sodium 143 mmol/L (136-145); Total Protein 7.0 g/dL (5.7-8.2)
[2025-07-10 09:25] LABS: RBC Morphology Normal
[2025-07-10 09:33] LABS: WBC 1.41 10^3/uL (4.4-10.8)
[2025-07-17] MEDS: Normal Saline Flush 10 ML SYR IVP (09:06)
[2025-07-17 09:09] LABS: Abs Immature Grans 0.00 10^3/uL (0.0-0.06); HCT 39.4 % (36.0-46.0); HGB 13.1 g/dL (11.2-15.7); Immature Grans % 0.0 %; MCH 31.8 pg (27.0-33.0); MCHC 33.2 % (32.0-36.0); MCV 96 fL (80-95); MPV 11.9 fL (8.0-11.0); RBC 4.12 10^6/uL (3.93-5.22); RDW 15.2 % (11.7-14.6); RDW-SD 51.5 fL
[2025-07-17 09:34] LABS: Platelet Count 538 10^3/uL (130-400)
[2025-07-17 09:35] LABS: RBC Morphology Normal
[2025-07-17 09:41] LABS: WBC 1.31 10^3/uL (4.4-10.8)
== END 2025-07-19 23:59 | disposition home or self-care (01) ==
LOC: INF 00:32
PROVIDERS: Nurse Practitioner Adult Health; PCP Family Medicine; Visit Provider Internal Medicine
DX: C92.00 Acute myeloblastic leukemia, not having achieved remission (principal); Z45.2 Encounter for adjustment and management of vascular access device
CPT/HCPCS: 36591; 80053; 86850; 86900; 86901; 83735; 85025